=== PATIENT | female | born 1950 | race African-American/Black ===

== ENCOUNTER 2018-04-19 09:31 | Day surgery (SDC) | payer OTHER ==
[2018-04-19] VITALS (10 sets, daily range): BP systolic 172–197; BP diastolic 81–92
[~2018-04-19] VITALS: Ht 177.8 cm; Wt 117.9 kg
[~2018-04-19 09:31] MED LIST: AMLO-361 PO; CLON0.1T PO; LEVO150T8 PO
[2018-04-19] MEDS ORDERED: LIDOCAINE HCL 1% 20ML VIAL (Pyxis) INJ ONE (09:44)
[2018-04-19] MEDS ORDERED: SODIUM BICARBONATE 4% (2.4MEQ) 5ML VIAL IV ONE (09:45)
[2018-04-19] MEDS ORDERED: FENTANYL CITRATE/PF 50MCG/ML 2ML VIAL ONE (09:46)
[2018-04-19] MEDS ORDERED: FENTANYL CITRATE/PF 50MCG/ML 2ML VIAL IV ONE (11:15)
== END 2018-04-19 15:30 | disposition home or self-care (01) ==
LOC: RAD 09:31
PROVIDERS: ATTEND Internal Medicine Endocrinology, Diabetes & Metabolism
DX: C34.12 Malignant neoplasm of upper lobe, left bronchus or lung (principal); I10 Essential (primary) hypertension; E07.9 Disorder of thyroid, unspecified
CPT/HCPCS: 32405; 71045; 77012; 88305; 88312; J3010; J3490; J7050

== ENCOUNTER 2018-08-21 13:25 | Inpatient (IN) | payer OTHER ==
[~2018-08-21] VITALS: Ht 175.3 cm; Wt 118.9 kg
[2018-08-21] MEDS ORDERED: SODIUM CHLORIDE 0.9% 1,000 ML IV ONE (16:06)
[2018-08-21] MEDS ORDERED: MORPHINE SULFATE 4 MG/ML CPJ (NOT FOR IM USE) IV STA (16:06)
[2018-08-21] MEDS ORDERED: ONDANSETRON HCL 4MG/2ML INJ IV STA (16:06)
[2018-08-21 16:36] LABS: HEMATOCRIT. 36.9 % (36.0-48.0); HEMOGLOBIN. 12.4 g/dL (12.0-16.0); MEAN CORPUSCULAR HEMOGLOBIN 27.5 pg (28.0-32.0); MEAN CORPUSCULAR VOLUME 81.8 fL (81.0-99.0); MEAN PLATELET VOLUME 8.1 fl (7.4-10.4); PLATELET 155 x1000/uL (130-400); RED BLOOD CELL COUNT 4.51 mill/uL (4.2-5.4); RED CELL DISTRIBUTION WIDTH 16.4 % (11.6-14.6)
[2018-08-21 16:39] LABS: CHLORIDE 97 mEq/L (98-107)
[2018-08-21 16:59] LABS: PLATELET ESTIMATE NORMAL
[2018-08-21] MEDS ORDERED: DEXTROSE 50% WATER 50ML SYRINGE IV ONE (17:15)
[2018-08-21] MEDS ORDERED: INSULIN REGULAR (HUMULIN R) 300UNITS/3ML IV ONE (17:15)
[2018-08-21 18:02] LABS: PHOSPHORUS 2.3 mg/dL (2.5-4.9)
[2018-08-21 18:42] LABS: CHLORIDE 100 mEq/L (98-107)
[2018-08-21 22:15] VITALS: BP 142/66
[2018-08-21] MEDS ORDERED: ROSU5TAB PO (23:56)
[2018-08-21] MEDS ORDERED: POTA10TA11 PO (23:57)
[2018-08-22] VITALS: BP_SYST 137; BP_SYST 142; BP_DIAS 59; BP_DIAS 66
[2018-08-22] MEDS: LEVOFLOXACIN 500MG PREMIX 100 ML IV SCH ×2 (00:17→23:17)
[2018-08-22] MEDS: MORPHINE SULFATE 4 MG/ML CPJ (NOT FOR IM USE) IV PRN ×2 (00:17→04:50)
[2018-08-22] MEDS: DEXT 5%/0.45% NACL KCL 20MEQ/L 1,000 ML IV SCH ×2 (00:17→09:40)
[2018-08-22 01:08] LABS: CHLORIDE 101 mEq/L (98-107)
[2018-08-22] MEDS: PANTOPRAZOLE SODIUM 40 MG/VIAL IV SCH ×2 (01:16→09:40)
[2018-08-22 04:00] VITALS: BP 128/55
[2018-08-22] MEDS: ONDANSETRON HCL 4MG/2ML INJ IV PRN ×2 (04:57→23:17)
[2018-08-22 08:00] VITALS: BP 131/67
[2018-08-22] MEDS ORDERED: NON FORMULARY PATIENT HOME MED XX SCH (09:00)
[2018-08-22 11:48] VITALS: BP 147/65
[2018-08-22] MEDS ORDERED: POTASSIUM PHOS,M-BASIC-D-BASIC 10 MMOL in DEXT 5% WATER 246.6667 ML IV SCH (13:00)
[2018-08-22] MEDS ORDERED: IOHEXOL-350 100 ML BOTTLE ONE (14:28)
[2018-08-22 15:49] LABS: HEMATOCRIT. 38.2 % (36.0-48.0); HEMOGLOBIN. 12.6 g/dL (12.0-16.0); MEAN CORPUSCULAR HEMOGLOBIN 27.2 pg (28.0-32.0); MEAN CORPUSCULAR VOLUME 82.3 fL (81.0-99.0); MEAN PLATELET VOLUME 8.3 fl (7.4-10.4); PLATELET 166 x1000/uL (130-400); RED BLOOD CELL COUNT 4.64 mill/uL (4.2-5.4); RED CELL DISTRIBUTION WIDTH 16.5 % (11.6-14.6)
[2018-08-22 16:24] VITALS: BP 145/70
[2018-08-22 16:34] LABS: PLATELET ESTIMATE NORMAL
[2018-08-22 19:56] VITALS: BP 141/57
[2018-08-22] MEDS: ACETAMINOPHEN 325MG TABLET PO PRN (19:59)
[2018-08-22 23:46] LABS: CHLORIDE 101 mEq/L (98-107)
[2018-08-22 23:49] LABS: HEMATOCRIT. 32.7 % (36.0-48.0); HEMOGLOBIN. 11.1 g/dL (12.0-16.0); MEAN CORPUSCULAR HEMOGLOBIN 27.3 pg (28.0-32.0); MEAN CORPUSCULAR VOLUME 80.5 fL (81.0-99.0); MEAN PLATELET VOLUME 8.1 fl (7.4-10.4); PLATELET 181 x1000/uL (130-400); RED BLOOD CELL COUNT 4.06 mill/uL (4.2-5.4); RED CELL DISTRIBUTION WIDTH 16.4 % (11.6-14.6)
[2018-08-23] VITALS: BP 138/62
[2018-08-23 04:00] VITALS: BP 122/46
[2018-08-23] MEDS: DEXT 5%/0.45% NACL KCL 20MEQ/L 1,000 ML IV SCH ×2 (05:23→18:42)
[2018-08-23 05:49] LABS: PLATELET ESTIMATE NORMAL
[2018-08-23] MEDS: PANTOPRAZOLE SODIUM 40 MG/VIAL IV SCH (08:41)
[2018-08-23 08:44] VITALS: BP 107/53
[2018-08-23 12:09] VITALS: BP 125/61
[2018-08-23] MEDS ORDERED: METOCLOPRAMIDE HCL 10MG/2ML VIAL IV PRN (15:30)
[2018-08-23 15:54] VITALS: BP 146/62
[2018-08-23 19:12] LABS: CLARITY URINE TURBID (CLEAR); COLOR URINE YELLOW (YELLOW); KETONES URINE NEGATIVE (NEGATIVE); LEUKOCYTE ESTERASE URINE 2+ (NEGATIVE); NITRITE URINE POSITIVE (NEGATIVE); OCCULT BLOOD URINE 1+ (NEGATIVE); PROTEIN URINE NEGATIVE (NEGATIVE); SPECIFIC GRAVITY URINE 1.004 (1.005-1.030)
[2018-08-23 20:00] VITALS: BP_SYST 141; BP_SYST 145; BP_SYST 151; BP_DIAS 54; BP_DIAS 56; BP_DIAS 61
[2018-08-23] MEDS ORDERED: ATORVASTATIN CALCIUM 10MG TABLET PO SCH (21:00)
[2018-08-23] MEDS ORDERED: MEDICATION NOT ON FORMULARY EA (Rosuvastatin Calcium (Crestor) 5 MG) PO SCH (21:00)
[2018-08-23] MEDS ORDERED: ONDANSETRON INJ 8 MG in DEXTROSE 5% WATER 50 ML IV PRN (22:00)
[2018-08-23] MEDS ORDERED: LEVO125T8 PO (22:01)
[2018-08-24] VITALS: BP 147/61
[2018-08-24] MEDS: DEXT 5%/0.45% NACL KCL 20MEQ/L 1,000 ML IV SCH ×2 (00:29→13:22)
[2018-08-24] MEDS: LEVOFLOXACIN 500MG PREMIX 100 ML IV SCH (00:29)
[2018-08-24 04:18] VITALS: BP 121/68
[2018-08-24 06:14] LABS: HEMATOCRIT 32.1 % (36.0-48.0); HEMOGLOBIN 10.5 g/dL (12.0-16.0); MEAN CORPUSCULAR HEMOGLOBIN 26.9 pg (28.0-32.0); MEAN CORPUSCULAR VOLUME 82.4 fL (81.0-99.0); PLATELET 192 x1000/uL (130-400); RED BLOOD CELL COUNT 3.89 mill/uL (4.2-5.4); RED CELL DISTRIBUTION WIDTH 16.7 % (11.6-14.6)
[2018-08-24 06:51] LABS: CHLORIDE 105 mEq/L (98-107)
[2018-08-24] MEDS ORDERED: LEVOTHYROXINE SODIUM 125MCG TABLET PO SCH (07:20)
[2018-08-24 08:00] VITALS: BP_SYST 131; BP_SYST 135; BP_SYST 137; BP_DIAS 56; BP_DIAS 72; BP_DIAS 85
[2018-08-24] MEDS ORDERED: FAMOTIDINE 20MG/2ML VIAL IV SCH (09:00)
[2018-08-24] MEDS ORDERED: FILGRASTIM-TBO 480 MCG/0.8 ML SYRINGE SQ SCH (09:00)
[2018-08-24 12:00] VITALS: BP 133/54
[2018-08-24 16:00] VITALS: BP 151/55
[2018-08-24] MEDS: ACETAMINOPHEN 325MG TABLET PO PRN (16:49)
[2018-08-24 17:13] VITALS: BP 151/55
[2018-08-25] MEDS ORDERED: FILGRASTIM-TBO 480 MCG/0.8 ML SYRINGE SQ SCH (21:00)
== END 2018-08-24 18:25 | disposition home or self-care (01) | DRG 809 ==
LOC: ER 13:25 → 6WST 17:39 → EDBEDREQ 17:47 → EDBEDREQTM 17:48 → ENRESERV 20:46
PROVIDERS: ADMIT Internal Medicine; ATTEND Internal Medicine
DX: D70.9 Neutropenia, unspecified (principal); E87.1 Hypo-osmolality and hyponatremia; E87.2 Acidosis; R11.2 Nausea with vomiting, unspecified; D68.59 Other primary thrombophilia; T45.1X5A Adverse effect of antineoplastic and immunosuppressive drugs, initial encounter; E03.9 Hypothyroidism, unspecified; E83.39 Other disorders of phosphorus metabolism; E87.5 Hyperkalemia; E87.8 Other disorders of electrolyte and fluid balance, not elsewhere classified; I10 Essential (primary) hypertension; D64.9 Anemia, unspecified; E66.01 Morbid (severe) obesity due to excess calories; E86.0 Dehydration; E87.6 Hypokalemia; K52.9 Noninfective gastroenteritis and colitis, unspecified; R59.1 Generalized enlarged lymph nodes; E83.42 Hypomagnesemia; Z85.118 Personal history of other malignant neoplasm of bronchus and lung; Z90.2 Acquired absence of lung [part of]; Z68.38 Body mass index [BMI] 38.0-38.9, adult; Z87.891 Personal history of nicotine dependence; Z90.710 Acquired absence of both cervix and uterus; Z92.21 Personal history of antineoplastic chemotherapy; Z88.0 Allergy status to penicillin; Z79.899 Other long term (current) drug therapy; Y92.89 Other specified places as the place of occurrence of the external cause
CPT/HCPCS: 36415; 71045; 71275; 80048; 82270; 82962; 83605; 83735; 84100; 84145; 84443; 85027; 87015; 87045; 87427; 87449; 87493; 93005; 93970; 96374; 99285; C9113; J1442; J1815; J1956; J2270; J2405; J3490; J7030; J7040; J7060; Q9967

== ENCOUNTER 2018-09-30 14:48 | Inpatient (IN) | payer OTHER ==
[~2018-09-30] VITALS: Ht 175.3 cm; Wt 117.0 kg
[~2018-09-30 14:48] MED LIST changes: -CLON0.1T PO; +LEVO125T8 PO; -LEVO150T8 PO; +POTA10TA11 PO; +ROSU5TAB PO
[2018-09-30] MEDS ORDERED: ONDANSETRON HCL 4MG/2ML INJ IV STA (15:31)
[2018-09-30] MEDS ORDERED: MORPHINE SULFATE 4 MG/ML CPJ (NOT FOR IM USE) IV STA (15:31)
[2018-09-30] MEDS ORDERED: LEVOFLOXACIN 750MG PREMIX 150 ML IV ONE (15:45)
[2018-09-30] MEDS ORDERED: METRONIDAZOLE 500 MG PREMIX 100 ML IV ONE (15:45)
[2018-09-30] MEDS ORDERED: SODIUM CHLORIDE 0.9% 1000ML BAG (SEPSIS BOLUS) IV ONE (15:45)
[2018-09-30 16:06] LABS: HEMATOCRIT. 33.7 % (36.0-48.0); MEAN CORPUSCULAR VOLUME 82.8 fL (81.0-99.0); MEAN PLATELET VOLUME 8.4 fl (7.4-10.4); PLATELET 137 x1000/uL (130-400); RED BLOOD CELL COUNT 4.07 mill/uL (4.2-5.4); RED CELL DISTRIBUTION WIDTH 19.7 % (11.6-14.6)
[2018-09-30 16:09] LABS: CHLORIDE 96 mEq/L (98-107)
[2018-09-30 16:11] LABS: PARTIAL THROMBOPLASTIN TIME 24.6 sec (23.4-31.0); PROTHROMBIN TIME 10.5 sec (9.6-11.0)
[2018-09-30 16:55] LABS: CLARITY URINE CLOUDY (CLEAR); COLOR URINE YELLOW (YELLOW); KETONES URINE NEGATIVE (NEGATIVE); LEUKOCYTE ESTERASE URINE TRACE (NEGATIVE); NITRITE URINE NEGATIVE (NEGATIVE); OCCULT BLOOD URINE NEGATIVE (NEGATIVE); PH URINE 6.5 (4.5-8.0); PROTEIN URINE 1+ (NEGATIVE)
[2018-09-30 17:48] LABS: PLATELET ESTIMATE NORMAL
[2018-09-30] MEDS ORDERED: POTASSIUM CHLORIDE 20MEQ TABLET SR PO ONE (18:00)
[2018-09-30] MEDS ORDERED: FLUCONAZOLE 100MG TABLET PO ONE (18:00)
[2018-09-30 22:00] VITALS: BP 137/61
[2018-09-30 22:12] VITALS: BP 152/64
[2018-09-30] MEDS ORDERED: VANCOMYCIN 1 G PREMIX 200 ML IV STA (22:32)
[2018-09-30] MEDS ORDERED: ONDANSETRON HCL 4MG/2ML INJ IV PRN (22:45)
[2018-09-30] MEDS ORDERED: LOPERAMIDE 2 MG/10 ML UDC PO PRN (23:13)
[2018-09-30] MEDS ORDERED: HYDROCODONE/ACETAMINOPHEN 5/325MG TABLET PO PRN (23:14)
[2018-10-01] VITALS (12 sets, daily range): BP systolic 122–149; BP diastolic 48–72
[2018-10-01] MEDS ORDERED: DEXT 5%/0.45% NACL KCL 20MEQ/L 1,000 ML IV SCH (01:00)
[2018-10-01] MEDS ORDERED: VANCOMYCIN 1500MG in DEXTROSE 5% WATER 250ML IV NR (01:30)
[2018-10-01] MEDS ORDERED: LOPE2CAP PO (02:14)
[2018-10-01] MEDS ORDERED: ONDA8TAB59 MT (02:14)
[2018-10-01] MEDS ORDERED: DEXA4TAB PO (02:14)
[2018-10-01] MEDS ORDERED: CHOL200074 MT (02:14)
[2018-10-01] MEDS ORDERED: CYAN10009 MT (02:14)
[2018-10-01] MEDS ORDERED: GABA-531 MT (02:14)
[2018-10-01] MEDS: LEVOTHYROXINE SODIUM 125MCG TABLET PO SCH (06:52)
[2018-10-01 07:10] LABS: HEMATOCRIT. 26.1 % (36.0-48.0); HEMOGLOBIN. 8.7 g/dL (12.0-16.0); MEAN CORPUSCULAR HEMOGLOBIN 27.4 pg (28.0-32.0); MEAN CORPUSCULAR VOLUME 82.3 fL (81.0-99.0); MEAN PLATELET VOLUME 8.5 fl (7.4-10.4); PLATELET 89 x1000/uL (130-400); RED BLOOD CELL COUNT 3.18 mill/uL (4.2-5.4)
[2018-10-01 07:25] LABS: CHLORIDE 103 mEq/L (98-107)
[2018-10-01] MEDS: GABAPENTIN 300MG CAPSULE PO SCH ×4 (08:46→16:41)
[2018-10-01] MEDS: DEXT 5%/0.45% NACL KCL 20MEQ/L 1,000 ML IV SCH (11:26)
[2018-10-01] MEDS: LEVOFLOXACIN 500MG PREMIX 100 ML IV SCH (15:27)
[2018-10-01] MEDS: VANCOMYCIN 1250MG in DEXTROSE 5% WATER 250ML IV SCH (17:28)
[2018-10-01] MEDS ORDERED: VANCOMYCIN 750 MG PREMIX 150 ML IV SCH (19:00)
[2018-10-01 21:09] LABS: PLATELET ESTIMATE DECREASED
[2018-10-02] VITALS (14 sets, daily range): BP systolic 115–168; BP diastolic 57–88
[2018-10-02] MEDS: LEVOTHYROXINE SODIUM 125MCG TABLET PO SCH (06:40)
[2018-10-02 07:18] LABS: HEMATOCRIT. 26.9 % (36.0-48.0); MEAN CORPUSCULAR HEMOGLOBIN 27.6 pg (28.0-32.0); MEAN PLATELET VOLUME 8.4 fl (7.4-10.4); PLATELET 89 x1000/uL (130-400); RED BLOOD CELL COUNT 3.28 mill/uL (4.2-5.4); RED CELL DISTRIBUTION WIDTH 19.2 % (11.6-14.6)
[2018-10-02 08:07] LABS: CHLORIDE 102 mEq/L (98-107)
[2018-10-02] MEDS: GABAPENTIN 300MG CAPSULE PO SCH ×3 (08:50→17:00)
[2018-10-02] MEDS: DEXT 5%/0.45% NACL KCL 20MEQ/L 1,000 ML IV SCH ×2 (08:50→18:20)
[2018-10-02] MEDS ORDERED: MAGNESIUM 2 G PREMIX 50 ML IV NR (12:00)
[2018-10-02] MEDS: VANCOMYCIN 1250MG in DEXTROSE 5% WATER 250ML IV SCH (12:00)
[2018-10-02] MEDS ORDERED: FILGRASTIM-TBO 480 MCG/0.8 ML SYRINGE SQ SCH (13:00)
[2018-10-02 13:04] LABS: PLATELET ESTIMATE SLIGHTLY DECREASED
[2018-10-02] MEDS: LEVOFLOXACIN 500MG PREMIX 100 ML IV SCH (18:20)
[2018-10-02] MEDS ORDERED: FLUCONAZOLE 150MG TABLET PO NR (18:30)
[2018-10-02] MEDS ORDERED: MAGNESIUM 2 G PREMIX 50 ML IV SCH (20:00)
[2018-10-03] VITALS (7 sets, daily range): BP systolic 117–142; BP diastolic 55–71
[2018-10-03] MEDS: DEXT 5%/0.45% NACL KCL 20MEQ/L 1,000 ML IV SCH ×3 (04:07→23:06)
[2018-10-03 05:52] LABS: CHLORIDE 102 mEq/L (98-107)
[2018-10-03 06:40] LABS: HEMATOCRIT 27.7 % (36.0-48.0); HEMOGLOBIN 9.3 g/dL (12.0-16.0); MEAN CORPUSCULAR HEMOGLOBIN 27.3 pg (28.0-32.0); MEAN CORPUSCULAR VOLUME 81.4 fL (81.0-99.0); PLATELET 105 x1000/uL (130-400); RED BLOOD CELL COUNT 3.41 mill/uL (4.2-5.4)
[2018-10-03] MEDS ORDERED: MAGNESIUM 2 G PREMIX 50 ML IV SCH (09:00)
[2018-10-03] MEDS: VANCOMYCIN 1250MG in DEXTROSE 5% WATER 250ML IV SCH ×2 (09:04→23:50)
[2018-10-03] MEDS: LEVOTHYROXINE SODIUM 125MCG TABLET PO SCH (09:08)
[2018-10-03] MEDS: GABAPENTIN 300MG CAPSULE PO SCH ×3 (09:08→17:48)
[2018-10-03] MEDS ORDERED: POTASSIUM CHLORIDE INJ 40 MEQ in DEXT 5% WATER 250 ML IV NR (12:00)
[2018-10-03] MEDS: LEVOFLOXACIN 500MG PREMIX 100 ML IV SCH (16:16)
[2018-10-03] MEDS ORDERED: FILGRASTIM-TBO 480 MCG/0.8 ML SYRINGE SQ SCH (21:00)
[2018-10-04] VITALS: BP 120/58
[2018-10-04 04:00] VITALS: BP 114/51
[2018-10-04] MEDS: LEVOTHYROXINE SODIUM 125MCG TABLET PO SCH (06:10)
[2018-10-04 07:30] VITALS: BP 129/65
[2018-10-04] MEDS: GABAPENTIN 300MG CAPSULE PO SCH ×3 (08:31→16:32)
[2018-10-04] MEDS: DEXT 5%/0.45% NACL KCL 20MEQ/L 1,000 ML IV SCH (08:31)
[2018-10-04 11:47] VITALS: BP 146/68
[2018-10-04] MEDS ORDERED: VANCOMYCIN 1 G PREMIX 200 ML IV SCH (12:00)
[2018-10-04 16:00] VITALS: BP 146/61
[2018-10-04 16:09] LABS: HEMATOCRIT 28.9 % (36.0-48.0); HEMOGLOBIN 9.5 g/dL (12.0-16.0); MEAN CORPUSCULAR HEMOGLOBIN 27.3 pg (28.0-32.0); MEAN CORPUSCULAR VOLUME 82.7 fL (81.0-99.0); PLATELET 123 x1000/uL (130-400); RED CELL DISTRIBUTION WIDTH 19.6 % (11.6-14.6)
[2018-10-04] MEDS: LEVOFLOXACIN 500MG PREMIX 100 ML IV SCH (16:32)
[2018-10-04 16:51] VITALS: BP 146/61
== END 2018-10-04 19:00 | disposition home or self-care (01) | DRG 872 ==
LOC: ER 14:48 → 3WST 15:34 → EDBEDREQSVC 17:55 → EDBEDREQ 17:55 → ENRESERV 19:49 → 8WST 10-03 02:10
PROVIDERS: ADMIT Internal Medicine; ATTEND Internal Medicine
DX: A41.9 Sepsis, unspecified organism (principal); C34.90 Malignant neoplasm of unspecified part of unspecified bronchus or lung; D61.818 Other pancytopenia; D68.59 Other primary thrombophilia; K57.32 Diverticulitis of large intestine without perforation or abscess without bleeding; B37.49 Other urogenital candidiasis; R65.20 Severe sepsis without septic shock; I10 Essential (primary) hypertension; E03.9 Hypothyroidism, unspecified; E83.42 Hypomagnesemia; E83.51 Hypocalcemia; E87.6 Hypokalemia; Z90.710 Acquired absence of both cervix and uterus; Z88.0 Allergy status to penicillin; Z79.899 Other long term (current) drug therapy
CPT/HCPCS: 36415; 71045; 74176; 80048; 80202; 83605; 83735; 83880; 84145; 84436; 84443; 84484; 85027; 86850; 86900; 93005; 93970; 96365; 96366; 96375; 99291; C1893; J1442; J1956; J2270; J2405; J3370; J3475; J3480; J3490; J7030; J7040; J7050; J7060

== ENCOUNTER 2018-10-24 01:09 | Inpatient (IN) | payer OTHER ==
[~2018-10-24] VITALS: Ht 175.3 cm; Wt 116.6 kg
[~2018-10-24 01:09] MED LIST changes: -AMLO-361 PO; +CHOL200074 MT; +CYAN-50 MT; +GABA-531 MT; +ONDA8TAB59 MT
[2018-10-24] MEDS ORDERED: SODIUM CHLORIDE 0.9% 1,000 ML IV ONE (02:12)
[2018-10-24 02:42] LABS: HEMOGLOBIN. 8.9 g/dL (12.0-16.0); MEAN CORPUSCULAR HEMOGLOBIN 27.1 pg (28.0-32.0); MEAN CORPUSCULAR VOLUME 82.9 fL (81.0-99.0); PLATELET 134 x1000/uL (130-400); RED BLOOD CELL COUNT 3.26 mill/uL (4.2-5.4); RED CELL DISTRIBUTION WIDTH 22.1 % (11.6-14.6)
[2018-10-24] MEDS ORDERED: ONDANSETRON HCL 4MG/2ML INJ IV ONE (02:45)
[2018-10-24 02:50] LABS: CHLORIDE 98 mEq/L (98-107)
[2018-10-24 03:33] LABS: PROTHROMBIN TIME 10.7 sec (9.6-11.0)
[2018-10-24 04:02] LABS: PLATELET ESTIMATE NORMAL
[2018-10-24 08:30] VITALS: BP 154/72
[2018-10-24 08:57] VITALS: BP 154/72
[2018-10-24] MEDS ORDERED: DEXA4TAB PO (09:16)
[2018-10-24] MEDS ORDERED: LOPE2CAP PO (09:18)
[2018-10-24] MEDS ORDERED: AMLO-354 MT (09:18)
[2018-10-24 12:00] VITALS: BP 132/62
[2018-10-24] MEDS ORDERED: NA PHOS,M-B/NA PHOS,DI-BA ENEMA 118ML PR PRN (12:00)
[2018-10-24] MEDS ORDERED: MAGNESIUM/ALUMINUM HYDROXIDE/SIMETHICONE 30ML UDC PO PRN (12:00)
[2018-10-24] MEDS ORDERED: DOCUSATE SODIUM 100MG CAPSULE PO PRN (12:00)
[2018-10-24] MEDS ORDERED: DIPHENHYDRAMINE 50MG/ML VIAL IV PRN (12:00)
[2018-10-24] MEDS ORDERED: CLONIDINE 0.1MG TABLET PO PRN (12:00)
[2018-10-24] MEDS ORDERED: ACETAMINOPHEN 650MG SUPP PR PRN (12:00)
[2018-10-24] MEDS ORDERED: HYDROCODONE/ACETAMINOPHEN 5/325MG TABLET PO PRN (12:00)
[2018-10-24] MEDS ORDERED: LORAZEPAM 0.5MG TABLET PO PRN (12:00)
[2018-10-24] MEDS ORDERED: ONDANSETRON HCL 4MG/2ML INJ IV PRN (12:00)
[2018-10-24] MEDS ORDERED: IPRATROPIUM/ALBUTEROL 0.5-3(2.5)MG/3ML NEB INH PRN (12:00)
[2018-10-24] MEDS ORDERED: ACETAMINOPHEN 325MG TABLET PO PRN (12:00)
[2018-10-24] MEDS ORDERED: GUAIFENESIN 200MG/10ML SUGAR FREE UDC PO PRN (12:00)
[2018-10-24] MEDS ORDERED: POTASSIUM CHLORIDE INJ 40 MEQ in DEXT 5% WATER 250 ML IV NR ×2 (13:00→17:00)
[2018-10-24] MEDS ORDERED: MAGNESIUM 2 G PREMIX 50 ML IV SCH ×2 (15:30→16:00)
[2018-10-24 16:00] VITALS: BP 151/64
[2018-10-24 20:00] VITALS: BP 168/62
[2018-10-25] VITALS: BP 108/54
[2018-10-25] MEDS ORDERED: MAGNESIUM 2 G PREMIX 50 ML IV SCH (02:00)
[2018-10-25 03:59] VITALS: BP 110/50
[2018-10-25] MEDS: DEXT 5%/0.45% NACL KCL 20MEQ/L 1,000 ML IV SCH ×2 (04:52→18:23)
[2018-10-25 07:02] LABS: HEMATOCRIT. 24.4 % (36.0-48.0); HEMOGLOBIN. 8.2 g/dL (12.0-16.0); MEAN CORPUSCULAR VOLUME 82.9 fL (81.0-99.0); MEAN PLATELET VOLUME 8.1 fl (7.4-10.4); PLATELET 125 x1000/uL (130-400); RED BLOOD CELL COUNT 2.94 mill/uL (4.2-5.4); RED CELL DISTRIBUTION WIDTH 22.4 % (11.6-14.6)
[2018-10-25 07:08] LABS: CHLORIDE 101 mEq/L (98-107)
[2018-10-25] MEDS: LEVOTHYROXINE SODIUM 125MCG TABLET PO SCH (07:08)
[2018-10-25 08:00] VITALS: BP 121/62
[2018-10-25 09:45] LABS: PLATELET ESTIMATE SLIGHTLY DECREASED
[2018-10-25 12:00] VITALS: BP 123/78
[2018-10-25] MEDS ORDERED: MAGNESIUM 1 G PREMIX 100 ML IV SCH (16:00)
[2018-10-25] MEDS ORDERED: LORAZEPAM 0.5MG TABLET PO PRN (16:00)
[2018-10-25] MEDS: METRONIDAZOLE 500 MG PREMIX 100 ML IV SCH ×2 (16:21→23:15)
[2018-10-25 20:45] LABS: PHOSPHORUS 2.7 mg/dL (2.5-4.9)
[2018-10-25] MEDS: AZTREONAM 1 G in DEXTROSE 5% WATER 50 ML IV SCH (20:45)
[2018-10-25 20:47] VITALS: BP 130/60
[2018-10-26 00:31] VITALS: BP 131/61
[2018-10-26 04:49] VITALS: BP 143/56
[2018-10-26] MEDS: AZTREONAM 1 G in DEXTROSE 5% WATER 50 ML IV SCH ×2 (06:20→18:04)
[2018-10-26] MEDS: METRONIDAZOLE 500 MG PREMIX 100 ML IV SCH ×3 (07:00→21:23)
[2018-10-26] MEDS: LEVOTHYROXINE SODIUM 125MCG TABLET PO SCH (07:03)
[2018-10-26 07:11] LABS: HEMATOCRIT. 24.6 % (36.0-48.0); HEMOGLOBIN. 8.2 g/dL (12.0-16.0); MEAN CORPUSCULAR HEMOGLOBIN 27.7 pg (28.0-32.0); MEAN CORPUSCULAR VOLUME 83.4 fL (81.0-99.0); MEAN PLATELET VOLUME 7.8 fl (7.4-10.4); PLATELET 111 x1000/uL (130-400); RED BLOOD CELL COUNT 2.96 mill/uL (4.2-5.4); RED CELL DISTRIBUTION WIDTH 22.5 % (11.6-14.6)
[2018-10-26] MEDS: DEXT 5%/0.45% NACL KCL 20MEQ/L 1,000 ML IV SCH ×2 (09:18→21:33)
[2018-10-26] MEDS: OMEPRAZOLE 20MG CAPSULE EXTENDED RELEASE PO SCH (09:18)
[2018-10-26] MEDS ORDERED: MAGNESIUM 2 G PREMIX 50 ML IV NR (11:30)
[2018-10-26 13:29] LABS: CLARITY URINE CLEAR (CLEAR); COLOR URINE YELLOW (YELLOW); KETONES URINE NEGATIVE (NEGATIVE); LEUKOCYTE ESTERASE URINE NEGATIVE (NEGATIVE); NITRITE URINE NEGATIVE (NEGATIVE); OCCULT BLOOD URINE NEGATIVE (NEGATIVE); PROTEIN URINE NEGATIVE (NEGATIVE); SPECIFIC GRAVITY URINE 1.006 (1.005-1.030); UROBILINOGEN URINE 0.2 E.U./dL (0.2-1.0)
[2018-10-26 13:47] LABS: PLATELET ESTIMATE DECREASED
[2018-10-26] MEDS ORDERED: LACTULOSE 20G/30ML UDC PO PRN (14:45)
[2018-10-26] MEDS ORDERED: DOCUSATE SODIUM 100MG CAPSULE PO PRN (14:45)
[2018-10-26 16:00] VITALS: BP 152/56
[2018-10-26] MEDS: POLYETHYLENE GLYCOL 3350 (17GM) 1 DOSE PACK PO SCH (16:00)
[2018-10-26] MEDS ORDERED: LORAZEPAM 0.5MG TABLET PO PRN (16:00)
[2018-10-26 20:00] VITALS: BP 150/70
[2018-10-26] MEDS ORDERED: POTASSIUM CHLORIDE 20MEQ TABLET SR PO NR (22:30)
[2018-10-27] VITALS: BP 122/55
[2018-10-27 04:00] VITALS: BP 141/58
[2018-10-27] MEDS: AZTREONAM 1 G in DEXTROSE 5% WATER 50 ML IV SCH (05:00)
[2018-10-27] MEDS: METRONIDAZOLE 500 MG PREMIX 100 ML IV SCH (05:04)
[2018-10-27] MEDS: OMEPRAZOLE 20MG CAPSULE EXTENDED RELEASE PO SCH (06:10)
[2018-10-27] MEDS: LEVOTHYROXINE SODIUM 125MCG TABLET PO SCH (06:10)
[2018-10-27 07:54] VITALS: BP 132/63
[2018-10-27 08:21] LABS: HEMOGLOBIN. 8.4 g/dL (12.0-16.0); MEAN CORPUSCULAR HEMOGLOBIN 28.1 pg (28.0-32.0); MEAN CORPUSCULAR VOLUME 83.4 fL (81.0-99.0); MEAN PLATELET VOLUME 8.3 fl (7.4-10.4); PLATELET 110 x1000/uL (130-400); RED CELL DISTRIBUTION WIDTH 22.6 % (11.6-14.6)
[2018-10-27] MEDS: POLYETHYLENE GLYCOL 3350 (17GM) 1 DOSE PACK PO SCH (09:00)
[2018-10-27 12:05] VITALS: BP 140/60
[2018-10-27] MEDS ORDERED: POTASSIUM CHLORIDE 20MEQ TABLET SR PO NR (12:15)
[2018-10-27] MEDS ORDERED: SULFAMETHOXAZOLE/TRIMETHOPRIM 400/80MG TAB PO NR (13:00)
[2018-10-27] MEDS ORDERED: MAGNESIUM 2 G PREMIX 50 ML IV NR (13:00)
[2018-10-27] MEDS ORDERED: METRONIDAZOLE 500MG TABLET PO SCH (14:00)
[2018-10-27 14:18] LABS: PLATELET ESTIMATE DECREASED
[2018-10-27 16:25] VITALS: BP 106/43
[2018-10-27 16:45] VITALS: BP 106/43
[2018-10-27] MEDS ORDERED: SULFAMETHOXAZOLE/TRIMETHOPRIM 400/80MG TAB PO SCH (21:00)
== END 2018-10-27 17:18 | disposition home or self-care (01) | DRG 391 ==
LOC: ER 01:09 → 6WST 05:37 → ENRESERV 07:02
PROVIDERS: ADMIT Internal Medicine; ATTEND Internal Medicine
DX: K57.32 Diverticulitis of large intestine without perforation or abscess without bleeding (principal); N17.0 Acute kidney failure with tubular necrosis; D68.59 Other primary thrombophilia; C34.90 Malignant neoplasm of unspecified part of unspecified bronchus or lung; D64.9 Anemia, unspecified; E03.9 Hypothyroidism, unspecified; E83.42 Hypomagnesemia; E86.0 Dehydration; K44.9 Diaphragmatic hernia without obstruction or gangrene; I10 Essential (primary) hypertension; K59.00 Constipation, unspecified; E87.6 Hypokalemia; D72.825 Bandemia; Z79.899 Other long term (current) drug therapy; Z90.710 Acquired absence of both cervix and uterus; Z88.0 Allergy status to penicillin
CPT/HCPCS: 36415; 71045; 74176; 80048; 81003; 83735; 84100; 93005; 96361; 96374; 99285; C1893; J2405; J3475; J3480; J3490; J7030; J7040; J7060

== ENCOUNTER 2018-11-21 12:52 | Inpatient (IN) | payer OTHER ==
[~2018-11-21] VITALS: Ht 175.3 cm; Wt 109.8 kg
[~2018-11-21 12:52] MED LIST changes: +AMLO-354 MT; +DEXA4TAB PO; +LOPE2CAP PO
[2018-11-21 14:05] LABS: BASOPHILS % 0.3 % (0.0-2.0); EOSINOPHILS % 1.5 % (0.0-5.0); HEMATOCRIT. 26.6 % (36.0-48.0); HEMOGLOBIN. 8.7 g/dL (12.0-16.0); LYMPHOCYTES % 22.5 % (20.0-50.0); MEAN CORPUSCULAR HEMOGLOBIN 29.8 pg (28.0-32.0); MEAN CORPUSCULAR VOLUME 90.5 fL (81.0-99.0); MEAN PLATELET VOLUME 7.4 fl (7.4-10.4); MONOCYTES % 10.6 % (2.0-8.0); NEUTROPHILS % 65.1 % (40.0-76.0); PLATELET 144 x1000/uL (130-400); RED BLOOD CELL COUNT 2.93 mill/uL (4.2-5.4); RED CELL DISTRIBUTION WIDTH 22.9 % (11.6-14.6)
[2018-11-21 14:10] LABS: CHLORIDE 103 mEq/L (98-107)
[2018-11-21 14:15] LABS: INR 1.1; PROTHROMBIN TIME 10.9 sec (9.6-11.0)
[2018-11-21 14:16] LABS: PLATELET ESTIMATE NORMAL
[2018-11-21] MEDS ORDERED: POTASSIUM CHLORIDE 20MEQ TABLET SR PO NR (15:45)
[2018-11-21] MEDS ORDERED: ASPIRIN 325MG TABLET PO NR (17:00)
[2018-11-21 21:05] VITALS: BP 156/68
[2018-11-21 21:10] VITALS: BP 156/68
[2018-11-22] VITALS: BP 146/59
[2018-11-22] MEDS ORDERED: ACETAMINOPHEN 325MG TABLET PO PRN ×2 (00:15→17:45)
[2018-11-22 04:00] VITALS: BP 118/59
[2018-11-22] MEDS: LEVOTHYROXINE SODIUM 125MCG TABLET PO SCH (05:58)
[2018-11-22 07:03] LABS: BASOPHILS % 0.4 % (0.0-2.0); EOSINOPHILS % 2.4 % (0.0-5.0); HEMATOCRIT. 24.1 % (36.0-48.0); HEMOGLOBIN. 7.9 g/dL (12.0-16.0); LYMPHOCYTES % 28.6 % (20.0-50.0); MEAN CORPUSCULAR HEMOGLOBIN 29.9 pg (28.0-32.0); MEAN CORPUSCULAR VOLUME 90.9 fL (81.0-99.0); MEAN PLATELET VOLUME 7.5 fl (7.4-10.4); MONOCYTES % 9.8 % (2.0-8.0); NEUTROPHILS % 58.8 % (40.0-76.0); PLATELET 138 x1000/uL (130-400); RED BLOOD CELL COUNT 2.65 mill/uL (4.2-5.4)
[2018-11-22 08:00] VITALS: BP 123/53
[2018-11-22] MEDS: LOSARTAN POTASSIUM 100 MG TABLET PO SCH (08:22)
[2018-11-22] MEDS: ENOXAPARIN 30MG/0.3ML SYR SUBCUT SCH ×2 (08:22→21:34)
[2018-11-22] MEDS: CHOLECALCIFEROL (D3) 1000 UNIT TABLET PO SCH (08:22)
[2018-11-22] MEDS: AMLODIPINE 10MG TABLET PO SCH (08:22)
[2018-11-22] MEDS: HYDROCHLOROTHIAZIDE 25MG TABLET PO SCH (08:23)
[2018-11-22] MEDS: CYANOCOBALAMIN 1000MCG TABLET PO SCH (08:23)
[2018-11-22] MEDS ORDERED: ENOXAPARIN 40MG/0.4ML SYR SUBCUT SCH (09:00)
[2018-11-22] MEDS ORDERED: NON FORMULARY PATIENT HOME MED PO SCH ×2 (09:00)
[2018-11-22] MEDS ORDERED: ASPIRIN 81MG TABLET PO SCH (09:00)
[2018-11-22 12:00] VITALS: BP 135/52
[2018-11-22] MEDS ORDERED: POTASSIUM CHLORIDE 20MEQ TABLET SR PO NR ×2 (13:15→17:15)
[2018-11-22 15:19] LABS: CREATINE KINASE 96 IU/L (26-192)
[2018-11-22 15:20] LABS: CREATINE KINASE MB FRACTION < 1.0 ng/mL (0.5-3.6)
[2018-11-22] MEDS ORDERED: ALPRAZOLAM 0.5 MG TABLET PO NR (15:30)
[2018-11-22 16:00] VITALS: BP 155/62
[2018-11-22] MEDS ORDERED: ACETAMINOPHEN 650MG SUPP PR PRN (17:45)
[2018-11-22] MEDS ORDERED: IPRATROPIUM/ALBUTEROL 0.5-3(2.5)MG/3ML NEB HHN PRN (17:45)
[2018-11-22] MEDS ORDERED: DIPHENHYDRAMINE 50MG/ML VIAL IV PRN (17:45)
[2018-11-22] MEDS ORDERED: LACTULOSE 20G/30ML UDC PO PRN (17:45)
[2018-11-22] MEDS ORDERED: DOCUSATE SODIUM 100MG CAPSULE PO PRN (17:45)
[2018-11-22] MEDS ORDERED: HYDRALAZINE 20MG/ML VIAL IV PRN (17:45)
[2018-11-22] MEDS ORDERED: ONDANSETRON HCL 4MG/2ML INJ IV PRN (17:45)
[2018-11-22 20:00] VITALS: BP 146/69
[2018-11-22] MEDS ORDERED: ATORVASTATIN CALCIUM 10MG TABLET PO SCH (21:00)
[2018-11-22] MEDS ORDERED: ATORVASTATIN CALCIUM 40MG TABLET PO SCH (21:00)
[2018-11-22] MEDS: CLOPIDOGREL 75MG TABLET PO SCH (21:36)
[2018-11-23] VITALS: BP 130/56
[2018-11-23 04:00] VITALS: BP 117/60
[2018-11-23] MEDS: LEVOTHYROXINE SODIUM 125MCG TABLET PO SCH (06:35)
[2018-11-23 06:53] LABS: HEMATOCRIT 25.1 % (36.0-48.0); HEMOGLOBIN 8.5 g/dL (12.0-16.0); MEAN CORPUSCULAR HEMOGLOBIN 30.2 pg (28.0-32.0); MEAN CORPUSCULAR VOLUME 89.5 fL (81.0-99.0); PLATELET 137 x1000/uL (130-400); RED BLOOD CELL COUNT 2.81 mill/uL (4.2-5.4)
[2018-11-23 08:00] VITALS: BP 130/64
[2018-11-23] MEDS: CLOPIDOGREL 75MG TABLET PO SCH (08:32)
[2018-11-23] MEDS: AMLODIPINE 10MG TABLET PO SCH (08:32)
[2018-11-23] MEDS: LOSARTAN POTASSIUM 100 MG TABLET PO SCH (08:32)
[2018-11-23] MEDS: HYDROCHLOROTHIAZIDE 25MG TABLET PO SCH (08:32)
[2018-11-23] MEDS: ENOXAPARIN 30MG/0.3ML SYR SUBCUT SCH (08:33)
[2018-11-23] MEDS: CHOLECALCIFEROL (D3) 1000 UNIT TABLET PO SCH (09:47)
[2018-11-23] MEDS: CYANOCOBALAMIN 1000MCG TABLET PO SCH (09:47)
[2018-11-23 12:00] VITALS: BP 151/65
[2018-11-23 16:00] VITALS: BP 151/64
[2018-11-23 17:20] VITALS: BP 151/64
== END 2018-11-23 18:35 | disposition home or self-care (01) | DRG 65 ==
LOC: ER 12:52 → 5WST 17:16 → EDBEDREQ 17:18 → ENRESERV 20:06
PROVIDERS: ADMIT Internal Medicine; ATTEND Internal Medicine
DX: I63.9 Cerebral infarction, unspecified (principal); D68.59 Other primary thrombophilia; G81.91 Hemiplegia, unspecified affecting right dominant side; N17.9 Acute kidney failure, unspecified; D64.9 Anemia, unspecified; E03.9 Hypothyroidism, unspecified; E66.01 Morbid (severe) obesity due to excess calories; E78.5 Hyperlipidemia, unspecified; E87.6 Hypokalemia; G62.9 Polyneuropathy, unspecified; M48.02 Spinal stenosis, cervical region; I12.9 Hypertensive chronic kidney disease with stage 1 through stage 4 chronic kidney disease, or unspecified chronic kidney disease; N18.9 Chronic kidney disease, unspecified; Z68.35 Body mass index [BMI] 35.0-35.9, adult; Z90.2 Acquired absence of lung [part of]; Z87.19 Personal history of other diseases of the digestive system; Z92.21 Personal history of antineoplastic chemotherapy; Z85.118 Personal history of other malignant neoplasm of bronchus and lung; Z79.899 Other long term (current) drug therapy; Z88.0 Allergy status to penicillin
CPT/HCPCS: 36415; 70551; 71045; 72141; 80048; 80061; 82550; 82553; 82962; 83036; 84436; 84443; 84484; 85027; 93005; 93306; 93880; 93970; 97165; 99285; J1650

== ENCOUNTER 2020-09-02 05:06 | Emergency (ER) | payer MEDICARE, OTHER ==
[~2020-09-02] VITALS: Ht 175.3 cm; Wt 118.0 kg
[~2020-09-02 05:06] MED LIST changes: -DEXA4TAB PO; -GABA-531 MT; -LOPE2CAP PO; -ONDA8TAB59 MT; -POTA10TA11 PO; -ROSU5TAB PO
[2020-09-02 05:59] LABS: HEMATOCRIT. 35.4 % (36.0-48.0); HEMOGLOBIN. 11.6 g/dL (12.0-16.0); MEAN CORPUSCULAR HEMOGLOBIN 26.3 pg (28.0-32.0); MEAN CORPUSCULAR VOLUME 80.2 fL (81.0-99.0); MEAN PLATELET VOLUME 7.3 fl (7.4-10.4); PLATELET 232 x1000/uL (130-400); RED BLOOD CELL COUNT 4.41 mill/uL (4.2-5.4); RED CELL DISTRIBUTION WIDTH 17.1 % (11.6-14.6)
[2020-09-02 06:03] LABS: CHLORIDE 103 mEq/L (98-107)
[2020-09-02 06:24] LABS: PLATELET ESTIMATE NORMAL
[2020-09-02] MEDS ORDERED: SODIUM CHLORIDE 0.9% 1,000 ML IV ONE (06:45)
[2020-09-02] MEDS ORDERED: IOHEXOL-300 100 ML BOTTLE ONE (06:59)
[2020-09-02] MEDS ORDERED: LOPERAMIDE HCL 2MG CAPSULE PO ONE (10:45)
[2020-09-02 14:00] VITALS: BP 148/62
== END 2020-09-02 14:15 | disposition home or self-care (01) ==
LOC: ER 05:06
DX: E86.0 Dehydration (principal); R19.7 Diarrhea, unspecified; R11.2 Nausea with vomiting, unspecified; I10 Essential (primary) hypertension; E03.9 Hypothyroidism, unspecified; Z85.118 Personal history of other malignant neoplasm of bronchus and lung; Z90.2 Acquired absence of lung [part of]; Z88.0 Allergy status to penicillin
CPT/HCPCS: 36415; 74176; 80053; 85025; 93005; 96360; 96361; 99285; C9803; J7030; J7040; Q9967; U0003; U0005

== ENCOUNTER 2020-12-27 19:06 | Emergency (ER) | payer OTHER ==
[~2020-12-27] VITALS: Ht 175.3 cm; Wt 100.0 kg
[2020-12-27] MEDS ORDERED: ONDANSETRON HCL 4MG/2ML INJ IV STA (21:46)
[2020-12-27] MEDS ORDERED: SODIUM CHLORIDE 0.9% 1,000 ML IV ONE (22:00)
[2020-12-27 22:50] LABS: BASOPHILS % 0.3 % (0.0-2.0); EOSINOPHILS % 1.4 % (0.0-5.0); HEMATOCRIT. 34.9 % (36.0-48.0); HEMOGLOBIN. 11.1 g/dL (12.0-16.0); LYMPHOCYTES % 7.7 % (20.0-50.0); MEAN CORPUSCULAR HEMOGLOBIN 26.1 pg (28.0-32.0); MEAN CORPUSCULAR VOLUME 82.1 fL (81.0-99.0); MEAN PLATELET VOLUME 7.5 fl (7.4-10.4); MONOCYTES % 4.5 % (2.0-8.0); NEUTROPHILS % 86.1 % (40.0-76.0); PLATELET 237 x1000/uL (130-400); RED BLOOD CELL COUNT 4.25 mill/uL (4.2-5.4); RED CELL DISTRIBUTION WIDTH 16.7 % (11.6-14.6)
[2020-12-27 22:55] LABS: CHLORIDE 103 mEq/L (98-107)
[2020-12-28] MEDS ORDERED: ONDA4TAB11 PO (00:15)
[2020-12-28 01:55] VITALS: BP 140/65
== END 2020-12-28 01:57 | disposition home or self-care (01) ==
LOC: ER 19:06
DX: R11.2 Nausea with vomiting, unspecified (principal); R19.7 Diarrhea, unspecified; I10 Essential (primary) hypertension; E78.00 Pure hypercholesterolemia, unspecified; E03.9 Hypothyroidism, unspecified; Z85.118 Personal history of other malignant neoplasm of bronchus and lung; Z88.0 Allergy status to penicillin
CPT/HCPCS: 36415; 71045; 80053; 84484; 85025; 93005; 96361; 96374; 99285; J2405; J7030